=== PATIENT | female | born 1970 | race Caucasian/White ===

== ENCOUNTER 2017-06-14 09:08 | Day surgery (SDC) | payer BC ==
[2017-06-13 11:51] VITALS: BMI 26.3
[~2017-06-14 09:08] MED LIST: DEXAMETHASONE SOD PHOSPHATE 10 MG/ML 1 ML VIAL IV ONE; HEPARIN SODIUM,PORCINE 5,000 UNIT/ML 1 ML VIAL SQ ONE; HYDROmorphone 0.5 MG/0.5 ML SYRINGE IVP PRN; LACTATED RINGERS 1,000 ML IV SCH; LIDOCAINE 1% 20 ML VIAL (10MG/ML) FOR IV START INTRADERMA PRN; MIDAZOLAM 2 MG/2 ML VIAL IV PRN; ONDANSETRON 4 MG/2 ML VIAL IVP ONE; Pre Op ABX Message 1 EACH MISC MISCELLANE ONE; SCOPOLAMINE 1.5MG/72HR PATCH TRANSDERM ONE
[2017-06-14] MEDS ORDERED: ALPRAZolam 0.5 MG TAB PO ONE (09:27)
[2017-06-14] MEDS ORDERED: LACTATED RINGERS 1,000 ML IV ONE ×2 (09:38→13:41)
--- NOTE | 2017-06-14 10:59 | NM ---
EXAMINATION TYPE: NM sentinel node injection DATE OF EXAM: 06/14/2017 COMPARISON: NONE HISTORY: Right breast cancer TECHNIQUE AND FINDINGS: The procedure of sentinel lymph node injection was explained to the patient. The benefits, alternatives, and risks were discussed. An informed consent was then obtained. A timeout was performed. Overlying skin is cleaned with sterile alcohol. Lidocaine buffered with bicarbonate was used as anes thetic into the skin and subcutaneous tissue surrounding the nipple. Following this, 548 uCi Tc 99m Filtered Sulfur Colloid was injected into 4 equivalent doses at 12, 3, 6, and 9:00 position surroundi ng the right nipple intradermally. The injection sites were massaged by nuclear supervising operator for 10 minutes after injection. T he patient tolerated the procedure well without any immediate complication. The patient was kept in the radiology department for short stay after the procedure. IMPRESSION: Right breast radiotracer injection for sentinel node localization as above.
[2017-06-14] MEDS ORDERED: ePHEDrine SULFATE/0.9% NACL/PF 50 MG/5 ML SYRINGE IV ONE (13:17)
[2017-06-14] MEDS ORDERED: PROPOFOL 10 MG/ML 20 ML VIAL IV ONE (13:17)
[2017-06-14] MEDS ORDERED: LIDOCAINE 1% INJ 10MG/ML (20 ML MDV) ONE (13:17)
[2017-06-14] MEDS ORDERED: SUCCINYLCHOLINE CHLORIDE 100 MG/5 ML SYR IV ONE (13:17)
[2017-06-14] MEDS ORDERED: fentaNYL (PF) 50 MCG/ML 2 ML AMP ONE (13:17)
[2017-06-14] MEDS ORDERED: MIDAZOLAM 2 MG/2 ML VIAL ONE (13:17)
[2017-06-14] MEDS ORDERED: METHYLENE BLUE 10 MG/ML (10 ML VIAL) INJ ONE (13:40)
[2017-06-14] MEDS ORDERED: SODIUM CHLORIDE 0.9% 50 ML with CLINDAMYCIN 600 MG IV ONE ×2 (13:43)
[2017-06-14 14:40] VITALS: TEMP 97.1
--- NOTE | 2017-06-14 14:59 | P.OP ---
Date of Procedure: 06/14/17 Preoperative Diagnosis: Right breast cancer diagnosed on excisional biopsy margins negative that lumpectomy site patient is now for sentinel node biopsy possible axillary node dissection, Postoperative Diagnosis: Healy node biopsy negative for cancer on frozen section Procedure(s) Performed: Healy node biopsy Anesthesia: SONALIA Surgeon: Rosalba Ledesma Estimated Blood Loss (ml): 5 IV fluids (ml): 700 Pathology: other (Healy lymph node) Disposition: PACU Indications for Procedure: Patient had an excisional biopsy of area of concern in the right breast which was positive for cancer she therefore comes in for sentinel node biopsy. Operative Findings: Healy node right axilla negative for cancer on frozen section Description of Procedure: Patient was taken to the operating room and the right breast and axilla were prepped and drapped in a sterile fashion. Prior to this 5 cc of 1/2 strength methylene blue was injected into the periaerolar region. The breast was then massaged. The neoprobe was used to identify an area of increased radioactivity in the axilla. An incision was made at that site. Carefull disection into the axilla revealed a radioactive and blue lymph node. The 10 second count on the lymph node was 1673, 10 second background count was 5. The lymph node was removed using careful sharp dissection. After being assured that hemostasis was attained the deep tissues were closed using a 4-0 Vicryl suture followed by 4-0 Monocryl in the skin. Steri-Strips were applied. Frozen section on the lymph node was negative for cancer. The patient tolerated the procedure in stable condition. All instrument and sponge counts were correct at the end of the case.
--- NOTE | 2017-06-14 15:00 | P.DS ---
Providers Attending physician: Rosalba Ledesma Primary care physician: Giuseppe Martin Plan - Discharge Summary New Discharge Prescriptions: No Action Sertraline [Zoloft] 50 mg PO HS Omeprazole [PriLOSEC] 20 mg PO AC-BRKFST Multivitamins, Thera [Multivitamin (formulary)] 1 tab PO DAILY ALPRAZolam [Xanax] 0.25 mg PO HS Calcium Carbonate/Vitamin D3 [Calcium 500-Vit D3 600 Tablet] 1 each PO DAILY Discharge Medication List ALPRAZolam [Xanax] 0.25 mg PO HS 05/23/17 [History] Multivitamins, Thera [Multivitamin (formulary)] 1 tab PO DAILY 05/23/17 [History ] Omeprazole [PriLOSEC] 20 mg PO AC-BRKFST 05/23/17 [History] Sertraline [Zoloft] 50 mg PO HS 05/23/17 [History] Calcium Carbonate/Vitamin D3 [Calcium 500-Vit D3 600 Tablet] 1 each PO DAILY 01/21 [History] Follow up Appointment(s)/Referral(s): Rosalba Ledesma MD [STAFF PHYSICIAN] - 1 Week Patient Instructions/Handouts: *Surgery [facility] - Scopalamine Patch Instructions Activity/Diet/Wound Care/Special Instructions: Do not drive today Do not drive if taking pain medication Discharge Disposition: HOME SELF-CARE
[2017-06-14 15:23] VITALS: RESP 18
[2017-06-14 16:11] VITALS: BP 98/59; PULSE 81
== END 2017-06-14 16:13 | disposition home or self-care (01) ==
LOC: OR 09:08
PROVIDERS: ATTEND Surgery
DX: D48.7 Neoplasm of uncertain behavior of other specified sites (principal); Z80.3 Family history of malignant neoplasm of breast; Z87.891 Personal history of nicotine dependence; F41.9 Anxiety disorder, unspecified; F32.9 Major depressive disorder, single episode, unspecified; J45.909 Unspecified asthma, uncomplicated; K21.9 Gastro-esophageal reflux disease without esophagitis; Z98.84 Bariatric surgery status; Z79.899 Other long term (current) drug therapy
CPT/HCPCS: 38525; 88342; 88331; 88307; 88341; 38792; A9541; J2250; J1644; J1100; J2405; J2001; Q9968; J3010; J0330; J2704; J1170

== ENCOUNTER → 2017-10-27 | Outpatient (CLI) | payer BC ==
[2017-10-27 13:12] VITALS: BP 101/69; PULSE 73; TEMP 98.4; BMI 25.9
--- NOTE | 2017-10-27 13:35 | P.GSHP ---
History of Present Illness H&P Date: 10/27/17 Chief Complaint: Right breast cancer The patient is a 47-year-old white female status post right breast lumpectomy radiation therapy and sentinel node biopsy. The sentinel node revealed a lymph node positive for isolated tumor cells. We did not go back and do an axillary dissection. The patient subsequently underwent radiation therapy and is going to start an aromatase inhibitor as per Dr. Cancino. The patient is complaining of 3 days ago pain and edema starting in the right breast. Prior to that she was doing well with no complaints. She is here for evaluation. She states the area was warm tight and swollen. Patient does not have any fevers. Past surgical history: 1. Right breast lumpectomy sentinel node biopsy June 2017 2. Gastric sleeve 3. Meniscus repair left knee 4. Partial hysterectomy and bladder suspension Past medical history: 1. Asthma/ALLERGIES Review of systems: HEENT: Wears glasses Lungs: Asthma/ALLERGIES Heart: Negative GI: GERD : Status post hysterectomy performed for bleeding or Pete skeletal: Left knee meniscus surgery ALLERGIES: No ALLERGIES Skin: Swollen right breast at this time Neurologic: Negative Endocrine: Negative. - Constitutional Constitutional: Denies chills, Denies fever - EENT Comment: wears glasses Ears: deny: decreased hearing, ear discharge, earache, tinnitus Ears, nose, mouth and throat: Reports headache, Denies sore throat - Breasts Breasts: bilateral: as per HPI - Cardiovascular Cardiovascular: Denies chest pain, Denies shortness of breath - Respiratory Comment: asthma Respiratory: Denies cough, Denies 7 - Gastrointestinal Comment: GERD - Genitourinary (Female) Comment: hysterectomy - Musculoskeletal Musculoskeletal: Reports as per HPI - Integumentary Comment: swollen right breast - Neurological Neurological: Denies numbness, Denies weakness - Psychiatric Psychiatric: Reports depression - Endocrine Endocrine: Reports as per HPI - Hematologic/Lymphatic Comment: no bleeding abnormalitites - Allergic/Immunologic Allergic/Immunologic: Reports seasonal allergies Past Medical History Past Medical History: Asthma, GERD/Reflux, Osteoarthritis (OA) Additional Past Medical History / Comment(s): past rx for bp, none currently. small hiatal hernia, hx h. pylori, History of Any Multi-Drug Resistant Organisms: None Reported Past Surgical History: Bariatric Surgery, Bladder Surgery, Hysterectomy, Orthopedic Surgery Additional Past Surgical History / Comment(s): bladder suspension, arthroscopy left knee, gastric sleeve, lymphoectomy 2017, lumpectomy May 2017 Past Anesthesia/Blood Transfusion Reactions: Motion Sickness Past Psychological History: No Psychological Hx Reported Smoking Status: Former smoker Past Alcohol Use History: Rare Additional Past Alcohol Use History / Comment(s): quit smoking 5 yrs ago, was occ smoker for 25 yrs Past Drug Use History: None Reported - Past Family History Mother Family Medical History: Cancer, Diabetes Mellitus, Eye Disorder, Hypertension, Thyroid Disorder Father Family Medical History: Cancer, Diabetes Mellitus, Eye Disorder, Hypertension, Neurologic Disorder, Osteoarthritis (OA), Pulmonary Embolus, Thyroid Disorder Additional Family Medical History / Comment(s): skin Medications and Allergies Home Medications Medication Instructions Recorded Confirmed Type ALPRAZolam [Xanax] 0.25 mg PO HS 05/23/17 06/13/17 History Multivitamins, Thera [Multivitamin 1 tab PO DAILY 05/23/17 06/13/17 History (formulary)] Omeprazole [PriLOSEC] 20 mg PO AC-BRKFST 05/23/17 06/13/17 History Sertraline [Zoloft] 50 mg PO HS 05/23/17 06/13/17 History Calcium Carbonate/Vitamin D3 1 each PO DAILY 06/13/17 06/13/17 History [Calcium 500-Vit D3 600 Tablet] Allergies Allergy/AdvReac Type Severity Reaction Status Date / Time Penicillins Allergy Severe Anaphylaxis Verified 06/13/17 11:32 Iodinated Contrast- Oral and AdvReac Nausea Verified 06/13/17 11:51 IV Dye Surgical - Exam Vital Signs Temp Pulse BP 98.4 F 73 101/69 10/27/17 13:04 10/27/17 13:04 10/27/17 13:04 - General well developed, well nourished, no distress - Eyes normal ocular movement - ENT no hearing loss, no congestion - Neck no masses, trachea midline - Respiratory normal respiratory effort, clear to auscultation - Cardiovascular Rhythm: regular Heart Sounds: normal: S1, S2 - Abdomen Abdomen: soft, non tender, no guarding, no rigid, no rebound - Integumentary Some dependent edema in the area inferior aspect of the right breast No evidence of any infection - Neurologic no disoriented, no combative - Musculoskeletal normal gait, normal posture - Psychiatric oriented to time, oriented to person, oriented to place, speech is normal, memory intact Breast examination Right breast: Postoperative changes as well as some dependent edema in the inferior aspect of the breast on physical examination no evidence of recurrent disease Left breast: No dominant masses or nodules of concern and multiple positional exam Bilateral axilla: No adenopathy of concern Results Oncotype dx: 16 Assessment and Plan Assessment: Impression/plan: 1. Patient is history of breast cancer status post right breast lumpectomy radiation therapy June 2017 2. Recent increased swelling of the right breast with tenderness Plan: 1. Right breast mammogram and ultrasound 2. Primary with Dr. Ponce radiation oncology 3. Follow-up here in 1 week cc: Dr. Loy Stoner [facility] Wilbur Soto Lucien nurse practitioner with Dr. Neel Stratton
--- NOTE | 2017-11-01 09:43 | MM ---
Reason for exam: clinical finding. History: Patient has history of breast cancer at age 46. Malignant MG pre op needle loc RT of the right breast, May 24, 2017. Lumpectomy of the right breast, May 2017. Radiation therapy of the right breast. Physical Findings: Breast exam performed by Dr. Ledesma. MG 3D Diag Mammo W/Cad RT CC and MLO view(s) were taken of the right breast. The breast tissue is heterogeneously dense. This may lower the sensitivity of mammography. Post therapy change on the right breast. Right upper central retroareolar mass corresponds with sonographic mass. These results were verbally communicated with the patient and result sheet given to the patient on 10/27/17. ASSESSMENT: Probably benign, BI-RAD 3 RECOMMENDATION: Ultrasound of the right breast in 3 months.
--- NOTE | 2017-11-01 09:46 | USB ---
Reason for exam: clinical finding. History: Patient has history of breast cancer at age 46. Malignant MG pre op needle loc RT of the right breast, May 24, 2017. Lumpectomy of the right breast, May 2017. Radiation therapy of the right breast. US Breast RT Right complete breast ultrasound includes all four quadrants, the retroareolar region and axilla. Finding demonstrates a 5.8 x 1.4 x 3.1cm complex fluid collection at the retroareolar, likely seroma/hematoma with retracted blood clot. These results were verbally communicated with the patient and result sheet given to the patient on 10/27/17. ASSESSMENT: Probably benign, BI-RAD 3 RECOMMENDATION: Ultrasound of the right breast in 3 months. (follow up ensure decrease in size and complexity)
== END | disposition home or self-care (01) ==
LOC: WWCWWP 13:02
PROVIDERS: ATTEND Surgery
DX: Z08 Encounter for follow-up examination after completed treatment for malignant neoplasm (principal); Z85.3 Personal history of malignant neoplasm of breast
CPT/HCPCS: 77061; 77065

== ENCOUNTER → 2018-05-15 | Outpatient (CLI) | payer BC ==
--- NOTE | 2018-05-15 09:49 | MM ---
Reason for exam: follow-up at short interval from prior study. Last mammogram was performed 7 months ago. History: Patient has history of breast cancer at age 46. Malignant MG pre op needle loc RT of the right breast, May 24, 2017. Lumpectomy of the right breast, May 2017. Radiation therapy of the right breast. Physical Findings: Nurse did not find any significant physical abnormalities on exam. MG 3D Diag Mammo W/Cad BLAKE Bilateral CC and MLO view(s) were taken. Prior study comparison: October 27, 2017, right breast MG 3d diag mammo w/cad RT. The breast tissue is heterogeneously dense. This may lower the sensitivity of mammography. Post surgical changes right upper middle breast. No significant new findings when compared with previous films. These results were verbally communicated with the patient and result sheet given to the patient on 05/15/18. ASSESSMENT: Benign, BI-RAD 2 RECOMMENDATION: Follow-up diagnostic mammogram of both breasts in 1 year.
== END | disposition home or self-care (01) ==
LOC: RADMAMWWP 08:45
PROVIDERS: ATTEND Radiology Radiation Oncology
DX: C50.211 Malignant neoplasm of upper-inner quadrant of right female breast (principal); Z92.3 Personal history of irradiation
CPT/HCPCS: 77062; 77066

== ENCOUNTER → 2018-07-17 | Outpatient (CLI) | payer BC | END | disposition home or self-care (01) | LOC: LABWHC1 15:23 | PROVIDERS: ATTEND Radiology Radiation Oncology | DX: C50.211 Malignant neoplasm of upper-inner quadrant of right female breast (principal); Z92.3 Personal history of irradiation; Z98.890 Other specified postprocedural states | CPT/HCPCS: 36415; 84439; 84443; 84481 ==

== ENCOUNTER → 2019-01-29 | Outpatient (CLI) | payer BC ==
--- NOTE | 2019-01-31 09:32 | USB ---
Reason for exam: clinical finding. History: Patient has history of breast cancer at age 46. Malignant MG pre op needle loc RT of the right breast, May 24, 2017. Lumpectomy of the right breast, May 2017. Radiation therapy of the right breast. Physical Findings: Nurse Summary: all soft, nodular, movable (nurse ts). US Breast RT Right complete breast ultrasound includes all four quadrants, the retroareolar region and axilla. Finding demonstrates a 2.3 x 1.6 x 1.6cm mixed lesion at 12 o'clock, appears smaller than prior, as an organizing hematoma with retracted vascular blood clot. These results were verbally communicated with the patient and result sheet given to the patient on 01/29/19. ASSESSMENT: Probably benign, BI-RAD 3 RECOMMENDATION: Follow-up diagnostic mammogram of both breasts in 3 months. Back on schedule. Ultrasound of the right breast in 3 months.
== END | disposition home or self-care (01) ==
LOC: RADUSWWP 14:57
PROVIDERS: ATTEND Radiology Radiation Oncology
DX: C50.211 Malignant neoplasm of upper-inner quadrant of right female breast (principal); Z79.811 Long term (current) use of aromatase inhibitors; Z92.3 Personal history of irradiation; Z98.890 Other specified postprocedural states

== ENCOUNTER → 2019-05-09 | Outpatient (CLI) | payer BC ==
--- NOTE | 2019-05-10 08:06 | BD ---
EXAMINATION TYPE: Axial Bone Density DATE OF EXAM: 05/09/2019 COMPARISON: NONE CLINICAL HISTORY: Postmenopausal female. History of breast cancer. Height: 5 FT 2 IN Weight: 144 FRAX RISK QUESTIONS: Alcohol (3 or more units per day): NO Family History (Parent hip fracture): NO Glucocorticoids (More than 3mos): NO (Ex: prednisone, prednisolone, methylprednisolone, dexamethasone, and hydrocortisone). History of Fracture in Adulthood: NO Secondary Osteoporosis: 1. Type 1 Diabetes: NO 2. Hyperthyroidism: NO 3. Menopause before 45: YES 4. Malnutrition: NO 5. Chronic liver disease: NO Rheumatoid Arthritis: NO Current Tobacco Use: NO RISK FACTORS HISTORY OF: Active: YES Postmenopausal woman: PART HYST AGE 39 MEDICATIONS: Additional Medications: AROMINSEN, ZOLOFT, XANAX , OMEPRAZOLE, VIT D , MULTI, BIOTIN, Additional History: BREAST CANCER 2017 RADIATION EXAM MEASUREMENTS: Bone mineral densitometry was performed using the [employer] System. Bone mineral density as measured about the Lumbar spine is: ----- L1-L4(G/cm2): 0.994 T Score Values are as follows: ----- L2: -1.5 ----- L3: -2.0 ----- L4: -1.6 ----- L1-L4: -1.5 BASELINE Bone mineral density about the R hip (g/cm2): 0.880 Bone mineral density about the L hip (g/cm2): 0.877 T Score values are as follows: -----R Neck: -1.1 -----L Neck: -1.2 -----R Total: -1.2 -----L Total: -0.9 BASELINE IMPRESSION: Osteopenia (T Score between -2.5 and -1). There is slightly increased risk of fracture and the patient may be considered for treatment. Re-Screen 2-5 years. NOTE: T-SCORE=SD OF THE YOUNG ADULT MEAN.
== END | disposition home or self-care (01) ==
LOC: RADBDWWP 16:16
PROVIDERS: ATTEND Internal Medicine Hematology & Oncology
DX: C50.211 Malignant neoplasm of upper-inner quadrant of right female breast (principal); M85.80 Other specified disorders of bone density and structure, unspecified site; Z79.890 Hormone replacement therapy
CPT/HCPCS: 77080

== ENCOUNTER → 2019-06-04 | Outpatient (CLI) | payer BC ==
--- NOTE | 2019-06-04 10:29 | MM ---
Reason for exam: additional evaluation requested from prior study. Last mammogram was performed 1 year and 1 month ago. History: Patient has history of breast cancer at age 46. Malignant MG pre op needle loc RT of the right breast, May 24, 2017. Lumpectomy of the right breast, May 2017. Radiation therapy of the right breast. Taking antineoplastic beginning at age 46. Physical Findings: Nurse did not find any significant physical abnormalities on exam. MG 3D Diag Mammo W/Cad BLAKE Bilateral CC and MLO view(s) were taken. Prior study comparison: May 15, 2018, bilateral MG 3d diag mammo w/cad BLAKE. October 27, 2017, right breast MG 3d diag mammo w/cad RT. The breast tissue is heterogeneously dense. This may lower the sensitivity of mammography. No suspicious abnormality. Post therapy change on the right breast. These results were verbally communicated with the patient and result sheet given to the patient on 06/04/19. ASSESSMENT: Incomplete: need additional imaging evaluation, BI-RAD 0 RECOMMENDATION: Ultrasound of the right breast. (right as recommended on the prior ultrasound)
--- NOTE | 2019-06-04 10:31 | USB ---
Reason for exam: follow-up at short interval from prior study. History: Patient has history of breast cancer at age 46. Malignant MG pre op needle loc RT of the right breast, May 24, 2017. Lumpectomy of the right breast, May 2017. Radiation therapy of the right breast. Taking antineoplastic beginning at age 46. US Breast Limited RT Technologist: Farzana Mcfarland Right limited breast ultrasound including focal area of concern, retroareolar and axilla demonstrates a 2.3 x 2.0 x 1.0cm mixed lesion at 12 o'clock, similar overall in size. No interval growth of the solid portion. Avascular. Appears as evolving fat necrosis versus less likely organizing hematoma. These results were verbally communicated with the patient and result sheet given to the patient on 06/04/19. ASSESSMENT: Benign, BI-RAD 2 RECOMMENDATION: Follow-up diagnostic mammogram of both breasts in 1 year.
== END | disposition home or self-care (01) ==
LOC: RADMAMWWP 07:46
PROVIDERS: ATTEND Radiology Radiation Oncology
DX: C50.211 Malignant neoplasm of upper-inner quadrant of right female breast (principal); R92.8 Other abnormal and inconclusive findings on diagnostic imaging of breast; Z79.811 Long term (current) use of aromatase inhibitors; Z92.3 Personal history of irradiation; Z98.890 Other specified postprocedural states
CPT/HCPCS: 77062; 77066

== ENCOUNTER → 2020-06-09 | Outpatient (CLI) | payer BC ==
--- NOTE | 2020-06-09 09:27 | MM ---
Reason for exam: additional evaluation requested from prior study. Last mammogram was performed 1 year ago. History: Patient has history of breast cancer at age 46. Malignant MG pre op needle loc RT of the right breast, May 24, 2017. Lumpectomy of the right breast, May 2017. Radiation therapy of the right breast. Taking antineoplastic for 3 years beginning at age 46. Physical Findings: Nurse did not find any significant physical abnormalities on exam. MG 3D Diag Mammo W/Cad BLAKE Bilateral CC and MLO view(s) were taken. Prior study comparison: June 04, 2019, bilateral MG 3d diag mammo w/cad BLAKE. May 15, 2018, bilateral MG 3d diag mammo w/cad BLAKE. The breast tissue is heterogeneously dense. This may lower the sensitivity of mammography. Post surgical and post therapy changes right breast. Redemonstrated fat necrosis calcifications right surgical site. No significant new findings when compared with previous films. These results were verbally communicated with the patient and result sheet given to the patient on 06/09/20. ASSESSMENT: Benign, BI-RAD 2 RECOMMENDATION: Follow-up diagnostic mammogram of both breasts in 1 year.
== END | disposition home or self-care (01) ==
LOC: RADMAMWWP 07:41
PROVIDERS: ATTEND Radiology Radiation Oncology
DX: C50.211 Malignant neoplasm of upper-inner quadrant of right female breast (principal); Z79.811 Long term (current) use of aromatase inhibitors; Z92.3 Personal history of irradiation; Z98.890 Other specified postprocedural states
CPT/HCPCS: 77062; 77066

== ENCOUNTER → 2021-07-15 | Outpatient (CLI) | payer BC ==
--- NOTE | 2021-07-15 08:54 | MM ---
Reason for exam: additional evaluation requested from prior study. Last mammogram was performed 1 year and 1 month ago. History: Patient has history of breast cancer at age 46. Malignant MG pre op needle loc RT of the right breast, May 24, 2017. Lumpectomy of the right breast, May 2017. Radiation therapy of the right breast. Took antineoplastic for 2 years beginning at age 46. Physical Findings: Nurse did not find any significant physical abnormalities on exam. MG 3D Diag Mammo W/Cad BLAKE Bilateral CC and MLO view(s) were taken. Prior study comparison: June 09, 2020, bilateral MG 3d diag mammo w/cad BLAKE. June 04, 2019, bilateral MG 3d diag mammo w/cad BLAKE. The breast tissue is heterogeneously dense. This may lower the sensitivity of mammography. Stable post operative changes right breast with distortion. No significant new findings when compared with previous films. These results were verbally communicated with the patient and result sheet given to the patient on 07/15/21. ASSESSMENT: Benign, BI-RAD 2 RECOMMENDATION: Follow-up diagnostic mammogram of both breasts in 1 year.
== END | disposition home or self-care (01) ==
LOC: RADMAMWWP 07:31
PROVIDERS: ATTEND Radiology Radiation Oncology
DX: R92.2 Inconclusive mammogram (principal); Z92.3 Personal history of irradiation; Z79.811 Long term (current) use of aromatase inhibitors; Z98.890 Other specified postprocedural states
CPT/HCPCS: 77062; 77066

== ENCOUNTER → 2023-08-10 | Outpatient (CLI) | payer BC ==
--- NOTE | 2023-08-11 10:14 | MM ---
Reason for Exam: Screening (asymptomatic). Last mammogram was performed 1 year(s) and 1 month(s) ago. Patient History: Menarche at age 13. First Full-Term at age 28. Hysterectomy at age 39. Breast cancer, right, age 46. 05/2017, Lumpectomy on the Right side. 05/24/2017, Malignant Core Biopsy on the right side. Radiation Therapy, right. Prior Study Comparison: 06/09/2020 Bilateral Diagnostic Mammogram, [facility]. 07/15/2021 Bilateral Diagnostic Mammogram, [facility]. 07/16/2022 Bilateral MG 3D diag mammo w/cad BLAKE, [facility]. Tissue Density: The breasts are heterogeneously dense, which may obscure small masses. Findings: Analyzed By CAD. There is no suspicious group of microcalcifications or new suspicious mass in either breast. Overall Assessment: Benign, BI-RAD 2 Management: Screening Mammogram of both breasts in 1 year. . Patient should continue monthly self-breast exams. A clinical breast exam by your physician is recommended on an annual basis. This exam should not preclude additional follow-up of suspicious palpable abnormalities. Note on Kiara scores and lifetime risk: 1. A Kiara score greater than 3% is considered moderate risk. If this is the case, consider specialist referral to assess eligibility for a risk reducing agent. 2. If overall lifetime risk for the development of breast cancer is 20% or higher, the patient may qualify for future screening with alternating mammogram and breast MRI. Electronically signed and approved by: Wilfredo Nelson M.D. Radiologis
== END | disposition home or self-care (01) ==
LOC: RADMAMWWP 07:27
PROVIDERS: ATTEND Family Medicine
DX: Z12.31 Encounter for screening mammogram for malignant neoplasm of breast (principal)
CPT/HCPCS: 77063; 77067